=== PATIENT | male | born 1990 | race Caucasian/White ===

== ENCOUNTER 2016-07-07 10:14 | Inpatient (IN) | payer BC ==
[~2016-07-07] VITALS: Ht 188 cm; Wt 83.9 kg
[~2016-07-07 10:14] MED LIST: ADVAIR 250/501 DISK IH; ALBUTEROL2.5 MG/3 M IH; AZITHROMYCIN250 MG1 PO; CEFDINIR300 MG PO; FLEXERIL10 MG PO; PERCOCET 5/31 TABLET PO; PREDNISONE20 MG PO; PROAIR HFA8.5 GM IH; ROXICODONE5 MG PO; TYLENOL EXTRA500 MG PO; ULTRAM50 MG PO
[2016-07-07 10:48] VITALS: BP 118/75
[2016-07-07 21:16] VITALS: BP 116/60
[2016-07-07 23:39] VITALS: BP 115/57
[2016-07-08 04:54] VITALS: BP 110/68
[2016-07-08 08:30] VITALS: BP 106/55; BP 182/73
== END 2016-07-08 13:14 | disposition home or self-care (01) | DRG 460 ==
LOC: 2SOUTH 10:14 → 3EAST 10:14 → EDSTATUS 14:18 → 2SOUTH 14:32 → SDC 14:42 → 3EAST 20:49
PROC: 0SG30AJ Fusion of Lumbosacral Joint with Interbody Fusion Device, Posterior Approach, Anterior Column, Open Approach (ICD-10-PCS; principal; 2016-07-07)
DX: M47.27 Other spondylosis with radiculopathy, lumbosacral region (principal); M51.37 Other intervertebral disc degeneration, lumbosacral region; M12.88 Other specific arthropathies, not elsewhere classified, other specified site; M40.30 Flatback syndrome, site unspecified
CPT/HCPCS: 36415; 72100; 76000; 86850; 86900; 86901; J0690; J1040; J1100; J1170; J1580; J2250; J2405; J2710; J3010; J3480

== ENCOUNTER 2017-04-06 13:26 | Emergency (ER) | payer OTHER, BC ==
[~2017-04-06] VITALS: Ht 190.5 cm; Wt 90.9 kg
[2017-04-06 16:10] VITALS: BP 123/88
== END 2017-04-06 16:12 | disposition home or self-care (01) ==
LOC: EME 13:26
DX: S16.1XXA Strain of muscle, fascia and tendon at neck level, initial encounter (principal); V49.40XA Driver injured in collision with unspecified motor vehicles in traffic accident, initial encounter; Y92.410 Unspecified street and highway as the place of occurrence of the external cause; J45.909 Unspecified asthma, uncomplicated; Z88.6 Allergy status to analgesic agent
CPT/HCPCS: 72040; 99281; 99285; J1885

== ENCOUNTER 2017-11-20 19:42 | Emergency (ER) | payer BC ==
[~2017-11-20] VITALS: Ht 190.5 cm; Wt 88.9 kg
[2017-11-20] MEDS ORDERED: EPIPEN ADU0.3 MG/0.3 IM (22:05)
[2017-11-20] MEDS ORDERED: MEDROL DOSEPAK4 MG PO (22:05)
[2017-11-20 22:16] VITALS: BP 141/92
== END 2017-11-20 22:18 | disposition home or self-care (01) ==
LOC: EME 19:42
DX: T63.441A Toxic effect of venom of bees, accidental (unintentional), initial encounter (principal); G89.29 Other chronic pain
CPT/HCPCS: J1200; J2930; J7030; S0028